=== PATIENT | female | born 1930 | race Hispanic/Latino ===

== ENCOUNTER 2016-08-21 12:43 | Inpatient (IN) | payer MEDICARE, BC, MEDICAID ==
[~2016-08-21] VITALS: Ht 149.9 cm; Wt 79.2 kg
[2016-08-21] MEDS ORDERED: OPTIRAY 350 100 ML VIAL HMH IV ONE (12:44)
[2016-08-21] MEDS ORDERED: DUONEB INH ONE (13:32)
[2016-08-21] MEDS ORDERED: CEFTRIAXONE 1 GM VIAL ONE (14:43)
[2016-08-21] MEDS ORDERED: SODIUM CHLORIDE 0.9% 100 ML IV ONE (14:43)
[2016-08-21] MEDS ORDERED: KCL CR 20 MEQ TAB PO ONE (16:40)
[2016-08-21] MEDS ORDERED: SODIUM CHLORIDE 0.9% 1,000 ML ONE (16:57)
[2016-08-21] MEDS ORDERED: BISACODYL EC 5 MG TAB PO PRN (19:50)
[2016-08-21] MEDS ORDERED: ACETAMINOPHEN 325 MG TAB PO PRN (19:50)
[2016-08-21] MEDS ORDERED: MORPHINE 4 MG/ML SYR IV PRN (19:50)
[2016-08-21] MEDS ORDERED: BISACODYL 10 MG SUPP RECTAL PRN (19:50)
[2016-08-21] MEDS ORDERED: MAG HYDROX 30 ML UDC PO PRN (19:50)
[2016-08-21] MEDS ORDERED: ONDANSETRON 4 MG VIAL IV PRN (19:50)
[2016-08-21] MEDS ORDERED: MORPHINE 2 MG/ML SYR IV PRN (19:50)
[2016-08-21] MEDS ORDERED: ALU/MAG/SIM 30 ML UDC PO PRN (19:50)
[2016-08-21] MEDS ORDERED: SALINE FLUSH 10 ML FLUSH PRN (19:50)
[2016-08-21] MEDS: SODIUM CHLORIDE 0.9% 1,000 ML IV SCH (21:35)
[2016-08-21 21:41] VITALS: Ht 149.9 cm; Wt 79.2 kg
[2016-08-21 21:43] VITALS: BP_SYST 173; RESP 20; TEMP 99
[2016-08-21] MEDS: SALINE FLUSH 10 ML FLUSH SCH (22:25)
[2016-08-21 23:19] VITALS: RESP 18
[2016-08-22] VITALS (7 sets, daily range): BP systolic 141–207; RESP 18–20; TEMP 97.4–99.3
[2016-08-22] MEDS: SODIUM CHLORIDE 0.9% FLUSH BAG 500 ML IV SCH ×2 (06:00)
[2016-08-22] MEDS: PANTOPRAZOLE 40 MG TAB PO SCH (06:18)
[2016-08-22] MEDS: SALINE FLUSH 10 ML FLUSH SCH ×2 (08:00→20:00)
[2016-08-22] MEDS ORDERED: ACETAMINOPHEN 500 MG TAB PO PRN (08:50)
[2016-08-22] MEDS: NEB-BUDESONIDE 0.5 MG INH SCH ×2 (08:50→19:44)
[2016-08-22] MEDS ORDERED: LEVETIRACETAM 500 MG/5 ML PO SCH ×2 (09:00→17:00)
[2016-08-22] MEDS: DIVALPROEX DR 125 MG TAB PO SCH ×2 (09:00→21:32)
[2016-08-22] MEDS ORDERED: MISSING DOSE XX ONE ×2 (09:05→14:55)
[2016-08-22] MEDS: ASA/DIPYRIDAMOLE 25/200 CAP PO SCH (09:21)
[2016-08-22] MEDS: CEFTRIAXONE 1 GM in SODIUM CHLORIDE 0.9% 50 ML IV SCH (10:45)
[2016-08-22] MEDS: SODIUM CHLORIDE 0.9% 1,000 ML IV SCH (10:47)
[2016-08-22] MEDS: DUONEB INH PRN ×3 (12:31→23:35)
[2016-08-22] MEDS: LEVETIRACETAM 500 MG/5 ML PO SCH ×2 (12:49→16:35)
[2016-08-22] MEDS ORDERED: KCL 20 MEQ/15 ML UDC PO ONE (12:50)
[2016-08-22] MEDS: OXYBUTYNIN 5 MG TAB PO SCH ×2 (12:51→21:32)
[2016-08-22] MEDS: METOPROLOL TART 50 MG TAB PO SCH (12:52)
[2016-08-22] MEDS: ENOXAPARIN 40 MG/0.4 ML SYR SUBQ SCH (12:53)
[2016-08-22] MEDS: ROSUVASTATIN 5 MG TAB PO SCH (21:32)
[2016-08-23] VITALS (9 sets, daily range): BP systolic 151–179; RESP 18–20; TEMP 97.4–98.3
[2016-08-23] MEDS: SODIUM CHLORIDE 0.9% FLUSH BAG 500 ML IV SCH ×2 (06:00)
[2016-08-23] MEDS: PANTOPRAZOLE 40 MG TAB PO SCH (07:21)
[2016-08-23] MEDS: SODIUM CHLORIDE 0.9% 1,000 ML IV SCH (07:21)
[2016-08-23] MEDS: SALINE FLUSH 10 ML FLUSH SCH ×2 (07:40→20:00)
[2016-08-23] MEDS: NEB-BUDESONIDE 0.5 MG INH SCH ×2 (07:51→19:50)
[2016-08-23] MEDS: DUONEB INH PRN (07:51)
[2016-08-23] MEDS: ASA/DIPYRIDAMOLE 25/200 CAP PO SCH (09:00)
[2016-08-23] MEDS: DIVALPROEX DR 125 MG TAB PO SCH ×2 (09:00→21:10)
[2016-08-23] MEDS: CEFTRIAXONE 1 GM in SODIUM CHLORIDE 0.9% 50 ML IV SCH (09:06)
[2016-08-23] MEDS: METOPROLOL TART 50 MG TAB PO SCH (09:07)
[2016-08-23] MEDS: ENOXAPARIN 40 MG/0.4 ML SYR SUBQ SCH (09:07)
[2016-08-23] MEDS: LEVETIRACETAM 500 MG/5 ML PO SCH ×2 (09:07→17:15)
[2016-08-23] MEDS: OXYBUTYNIN 5 MG TAB PO SCH ×2 (09:07→21:10)
[2016-08-23] MEDS: ROSUVASTATIN 5 MG TAB PO SCH (21:10)
[2016-08-24] VITALS (13 sets, daily range): BP systolic 144–197; RESP 18–20; TEMP 97.1–98.8
[2016-08-24] MEDS: SODIUM CHLORIDE 0.9% 1,000 ML IV SCH (02:29)
[2016-08-24] MEDS: SODIUM CHLORIDE 0.9% FLUSH BAG 500 ML IV SCH ×4 (06:00→19:37)
[2016-08-24] MEDS: PANTOPRAZOLE 40 MG TAB PO SCH (06:38)
[2016-08-24] MEDS: SALINE FLUSH 10 ML FLUSH SCH ×2 (07:42→21:19)
[2016-08-24] MEDS: NEB-BUDESONIDE 0.5 MG INH SCH ×2 (07:50→19:01)
[2016-08-24] MEDS: ASA/DIPYRIDAMOLE 25/200 CAP PO SCH (09:00)
[2016-08-24] MEDS: METOPROLOL TART 50 MG TAB PO SCH ×2 (09:00→15:11)
[2016-08-24] MEDS: LEVETIRACETAM 500 MG/5 ML PO SCH ×2 (09:00→15:13)
[2016-08-24] MEDS: DIVALPROEX DR 125 MG TAB PO SCH ×2 (09:00→21:05)
[2016-08-24] MEDS: OXYBUTYNIN 5 MG TAB PO SCH ×2 (09:00→21:05)
[2016-08-24] MEDS: CEFTRIAXONE 1 GM in SODIUM CHLORIDE 0.9% 50 ML IV SCH (09:45)
[2016-08-24] MEDS: ENOXAPARIN 40 MG/0.4 ML SYR SUBQ SCH (09:45)
[2016-08-24] MEDS: DUONEB INH PRN ×3 (11:26→23:34)
[2016-08-24] MEDS ORDERED: KCL 20 MEQ/15 ML UDC PO ONE (13:25)
[2016-08-24] MEDS: D5-1/2-NS W/KCL 20MEQ/L 1,000 ML IV SCH ×2 (14:25→22:50)
[2016-08-24] MEDS: ROSUVASTATIN 5 MG TAB PO SCH (21:05)
[2016-08-24] MEDS: LABETALOL 100 MG/20 ML VIAL IV PUSH PRN (21:16)
[2016-08-25] VITALS (8 sets, daily range): BP systolic 142–198; RESP 18–20; TEMP 97.5–98.3
[2016-08-25] MEDS: NEB-BUDESONIDE 0.5 MG INH SCH ×2 (06:14→19:29)
[2016-08-25] MEDS: LABETALOL 100 MG/20 ML VIAL IV PUSH PRN ×2 (06:16→15:31)
[2016-08-25] MEDS: PANTOPRAZOLE 40 MG TAB PO SCH (06:18)
[2016-08-25] MEDS: D5-1/2-NS W/KCL 20MEQ/L 1,000 ML IV SCH ×3 (07:12→23:28)
[2016-08-25] MEDS: SALINE FLUSH 10 ML FLUSH SCH ×2 (08:00→20:26)
[2016-08-25] MEDS ORDERED: MISSING DOSE XX ONE (08:45)
[2016-08-25] MEDS: ENOXAPARIN 40 MG/0.4 ML SYR SUBQ SCH (08:47)
[2016-08-25] MEDS: CEFTRIAXONE 1 GM in SODIUM CHLORIDE 0.9% 50 ML IV SCH (08:48)
[2016-08-25] MEDS: ASA/DIPYRIDAMOLE 25/200 CAP PO SCH (09:00)
[2016-08-25] MEDS: METOPROLOL TART 50 MG TAB PO SCH (09:12)
[2016-08-25] MEDS: LEVETIRACETAM 500 MG/5 ML PO SCH ×2 (09:12→17:31)
[2016-08-25] MEDS: DIVALPROEX DR 125 MG TAB PO SCH ×2 (09:12→20:25)
[2016-08-25] MEDS: OXYBUTYNIN 5 MG TAB PO SCH ×2 (09:12→20:25)
[2016-08-25] MEDS: DUONEB INH PRN ×2 (11:50→19:29)
[2016-08-25] MEDS: ROSUVASTATIN 5 MG TAB PO SCH (20:25)
[2016-08-26] VITALS (7 sets, daily range): BP systolic 143–190; RESP 18–20; TEMP 97.4–98.2
[2016-08-26] MEDS: DUONEB INH PRN ×4 (00:07→17:22)
[2016-08-26] MEDS: SODIUM CHLORIDE 0.9% FLUSH BAG 500 ML IV SCH ×2 (00:16)
[2016-08-26] MEDS: PANTOPRAZOLE 40 MG TAB PO SCH (06:04)
[2016-08-26] MEDS: NEB-BUDESONIDE 0.5 MG INH SCH ×2 (07:14→17:22)
[2016-08-26] MEDS: D5-1/2-NS W/KCL 20MEQ/L 1,000 ML IV SCH (07:24)
[2016-08-26] MEDS: ASA/DIPYRIDAMOLE 25/200 CAP PO SCH (09:00)
[2016-08-26] MEDS: SALINE FLUSH 10 ML FLUSH SCH ×2 (09:01→22:07)
[2016-08-26] MEDS: METOPROLOL TART 50 MG TAB PO SCH (09:01)
[2016-08-26] MEDS: CEFTRIAXONE 1 GM in SODIUM CHLORIDE 0.9% 50 ML IV SCH (09:01)
[2016-08-26] MEDS: ENOXAPARIN 40 MG/0.4 ML SYR SUBQ SCH (09:02)
[2016-08-26] MEDS: DIVALPROEX DR 125 MG TAB PO SCH (09:02)
[2016-08-26] MEDS: OXYBUTYNIN 5 MG TAB PO SCH ×2 (09:02→22:07)
[2016-08-26] MEDS: LEVETIRACETAM 500 MG/5 ML PO SCH ×2 (09:03→16:36)
[2016-08-26] MEDS: LABETALOL 100 MG/20 ML VIAL IV PUSH PRN (17:09)
[2016-08-26] MEDS: amLODIPine 10 MG TAB PO SCH (18:02)
[2016-08-26] MEDS ORDERED: *PATIENT RECEIVING TUBE FEEDS, ASSESS/ADJUST MEDICATIONS NG SCH (20:55)
[2016-08-26] MEDS ORDERED: ACETAMINOPHEN 650 MG/20.3 ML UDC PO PRN (21:10)
[2016-08-26] MEDS: DIVALPROEX SOD 125 MG CAP PO SCH (22:06)
[2016-08-26] MEDS: ROSUVASTATIN 5 MG TAB PO SCH (22:07)
[2016-08-27] MEDS: DUONEB INH PRN ×5 (00:03→23:55)
[2016-08-27 03:21] VITALS: BP_SYST 162; RESP 20; TEMP 97.4
[2016-08-27] MEDS: SODIUM CHLORIDE 0.9% FLUSH BAG 500 ML IV SCH ×2 (06:00→06:18)
[2016-08-27] MEDS: PANTOPRAZOLE 40 MG TAB PO SCH (06:27)
[2016-08-27 07:18] VITALS: BP_SYST 158; RESP 22; TEMP 97.4
[2016-08-27] MEDS: NEB-BUDESONIDE 0.5 MG INH SCH ×2 (07:32→20:13)
[2016-08-27] MEDS ORDERED: MISSING DOSE XX ONE ×3 (09:45→10:10)
[2016-08-27] MEDS: LEVETIRACETAM 500 MG/5 ML PO SCH ×2 (09:56→17:32)
[2016-08-27] MEDS: CEFTRIAXONE 1 GM in SODIUM CHLORIDE 0.9% 50 ML IV SCH (09:56)
[2016-08-27] MEDS: LISINOPRIL 10 MG TAB PO SCH (09:56)
[2016-08-27] MEDS: amLODIPine 10 MG TAB PO SCH (09:57)
[2016-08-27] MEDS: SALINE FLUSH 10 ML FLUSH SCH ×2 (09:57→23:25)
[2016-08-27] MEDS: DIVALPROEX SOD 125 MG CAP PO SCH ×2 (09:57→23:14)
[2016-08-27] MEDS: OXYBUTYNIN 5 MG TAB PO SCH ×2 (09:57→23:13)
[2016-08-27] MEDS: ENOXAPARIN 40 MG/0.4 ML SYR SUBQ SCH (09:57)
[2016-08-27] MEDS: ASA/DIPYRIDAMOLE 25/200 CAP PO SCH (09:58)
[2016-08-27] MEDS: METOPROLOL TART 50 MG TAB PO SCH (12:14)
[2016-08-27 12:18] VITALS: BP_SYST 167; RESP 20; TEMP 97.5
[2016-08-27 17:15] VITALS: BP_SYST 140; RESP 20; TEMP 97.6
[2016-08-27 19:52] VITALS: BP_SYST 135; RESP 20; TEMP 97.7
[2016-08-27] MEDS: ROSUVASTATIN 5 MG TAB PO SCH (23:13)
[2016-08-27 23:36] VITALS: BP_SYST 160; RESP 18; TEMP 99
[2016-08-28 03:01] VITALS: BP_SYST 145; RESP 18
[2016-08-28] MEDS: SODIUM CHLORIDE 0.9% FLUSH BAG 500 ML IV SCH ×2 (06:00→06:28)
[2016-08-28] MEDS: PANTOPRAZOLE 40 MG TAB PO SCH ×2 (06:29→07:00)
[2016-08-28] MEDS: NEB-BUDESONIDE 0.5 MG INH SCH (06:57)
[2016-08-28] MEDS: DUONEB INH PRN ×2 (06:57→11:30)
[2016-08-28] MEDS ORDERED: MISSING DOSE XX ONE (07:30)
[2016-08-28 07:35] VITALS: BP_SYST 116; RESP 18; TEMP 97.3
[2016-08-28] MEDS: OXYBUTYNIN 5 MG TAB PO SCH (08:51)
[2016-08-28] MEDS: SALINE FLUSH 10 ML FLUSH SCH (08:51)
[2016-08-28] MEDS: CEFTRIAXONE 1 GM in SODIUM CHLORIDE 0.9% 50 ML IV SCH (08:51)
[2016-08-28] MEDS: METOPROLOL TART 50 MG TAB PO SCH (08:52)
[2016-08-28] MEDS: LISINOPRIL 10 MG TAB PO SCH (08:52)
[2016-08-28] MEDS: DIVALPROEX SOD 125 MG CAP PO SCH (08:52)
[2016-08-28] MEDS: ENOXAPARIN 40 MG/0.4 ML SYR SUBQ SCH (08:52)
[2016-08-28] MEDS: ASA/DIPYRIDAMOLE 25/200 CAP PO SCH (08:52)
[2016-08-28] MEDS: LEVETIRACETAM 500 MG/5 ML PO SCH (08:52)
[2016-08-28] MEDS: amLODIPine 10 MG TAB PO SCH (08:52)
[2016-08-28 11:31] VITALS: BP_SYST 164; RESP 18; TEMP 98.3
[2016-08-28 14:42] VITALS: BP_SYST 133; RESP 16; TEMP 98.5
[2016-08-28 14:44] VITALS: BP_SYST 133; RESP 16; TEMP 98.5
== END 2016-08-28 16:40 | DRG 689 ==
LOC: ENRESERVDT → ENRESERVTM → ENRESERV → ER 12:43 → EMR 19:49 → ENPENDDIS 19:49 → MC3 21:31 → 3NT 08-22 05:30
PROVIDERS: ADMIT Internal Medicine; ATTEND Internal Medicine
CPT/HCPCS: 36415; 36600; 71010; 71260; 80048; 80053; 81001; 82553; 82803; 83605; 83735; 83880; 84484; 85025; 85379; 85652; 86038; 86141; 86255; 87040; 87077; 87088; 87186; 87804; 93005; 94640; 94799; 96361; 96365; 96366; 99223; 99232; 99233; 99239